=== PATIENT | female | born 2000 | race Caucasian/White ===

== ENCOUNTER 2021-07-30 21:16 | Emergency (ER) | payer OTHER ==
[~2021-07-30] VITALS: Ht 160 cm; Wt 134.7 kg
[2021-07-30 21:23] VITALS: BP 137/111
--- NOTE | 2021-07-30 21:33 | NUR ---
TO ED 10
--- NOTE | 2021-07-30 22:03 | NUR ---
ULTRASOUND AT BEDSIDE
--- NOTE | 2021-07-30 22:19 | NUR ---
LABS COLLECTED BY [facility] AND WALKED TO LAB
[2021-07-30 22:20] LABS: BASOPHILS # (AUTO) 0.1 K/uL (0.00-0.22); BASOPHILS % (AUTO) 0.5 % (0.0-2.0); EOSINOPHILS # (AUTO) 0.2 K/uL (0-0.4); EOSINOPHILS % (AUTO) 1.6 % (0.0-4.0); HEMATOCRIT 37.9 % (36-48); HEMOGLOBIN 12.3 g/dL (12.0-16.0); LYMPHOCYTES # (AUTO) 3.7 K/uL (2.5-16.5); MEAN CORPUSCULAR HEMOGLOBIN 25 pg (27-31); MEAN CORPUSCULAR HGB CONC 32 g/dL (33-37); MEAN CORPUSCULAR VOLUME 75.8 fL (80-94); MONOCYTES # (AUTO) 0.6 K/uL (0.8-1.0); MONOCYTES % (AUTO) 4.8 % (1.7-9.3); NEUTROPHILS # (AUTO) 8.2 K/uL (1.8-7.7); NEUTROPHILS % (AUTO) 64.1 % (42.2-75.2); PLATELET COUNT (AUTO) 355 K/uL (140-450); RED CELL DISTRIBUTION WIDTH 14.8 % (11.6-13.7); WHITE BLOOD COUNT (AUTO) 12.7 K/uL (4.8-10.8)
[2021-07-30] MEDS ORDERED: KETOROLAC 30 MG/ML VIAL IVP ONE (22:25)
[2021-07-30] MEDS ORDERED: MORPHINE SULFATE 4 MG/ML SYR IVP ONE (22:25)
[2021-07-30] MEDS ORDERED: ONDANSETRON 4 MG/2 ML VIAL IVP ONE (22:25)
[2021-07-30] MEDS ORDERED: NACL 0.9% 1,000 ML IV ONE (22:25)
[2021-07-30 22:42] LABS: ALBUMIN 3.5 g/dL (3.4-5.0); CARBON DIOXIDE 27.6 mmol/L (21-32); CREATININE 0.8 mg/dL (0.6-1.3); POTASSIUM 3.6 mmol/L (3.5-5.1); TOTAL BILIRUBIN 0.2 mg/dL (0.0-1.0)
--- NOTE | 2021-07-30 22:49 | NUR ---
21 Y/O FEMALE BIBS, C/O EPIGASTRIC PAIN X4HRS. PATIENT PRESENTS TO ED WITH NAUSEA AND PAIN. PT STATES PAIN IS ACROSS UPPER ABDOMEN AND RADIATES TO RIGHT BACK. HER CHEST HURTS IF SHE BREATHS TOO DEEP. DENIES V/D BUT DOES HAVE NUSEA; SKIN IS PINK/WARM/DRY; AAOX4 WITH EVEN AND STEADY GAIT; LUNGS CLEAR BL; HR EVEN AND REGULAR; PT DENIES ANY FEVER, SOB, OR COUGH AT THIS TIME; PATIENT STATES PAIN OF 0/10 AT THIS TIME; VSS; PATIENT POSITIONED FOR COMFORT; HOB ELEVATED; BEDRAILS UP X2; BED DOWN. ER MD MADE AWARE OF PT STATUS. DENIES PMH NKA DENIES MEDS
[2021-07-30] MEDS ORDERED: DICYCLOMINE HCL LIQUID 20 MG, ALUMINUM HYD/MAG/SIMETHICONE 30 ML, LIDOCAINE VISCOUS 2% ... PO ONE ×3 (23:45)
[2021-07-30] MEDS ORDERED: MAG-27 PO (23:51)
--- NOTE | 2021-07-30 23:53 | NUR ---
PULSOX DROPPED TO 82 W/ GOOD WAVE FROM, PT STATES SHE HAS SLEEP APNEA. PT PLACED ON 2 L/MIN NASAL CANULA
[2021-07-31 01:07] VITALS: BP 137/111
--- NOTE | 2021-07-31 01:08 | NUR ---
Patient discharged with v/s stable. Written and verbal after care instructions given and explained. Patient alert, oriented and verbalized understanding of instructions. Ambulatory with steady gait. All questions addressed prior to discharge. ID band removed. Patient advised to follow up with PMD. Rx of MYLANTA MAXIMUM STRENGTH LIQ given. Patient educated on indication of medication including possible reaction and side effects. Opportunity to ask questions provided and answered. VSS, A/OX4, AMBULATPORY, UNLABORED BREATHING, AND CALM DEMEANOR.
== END 2021-07-31 01:08 | disposition home or self-care (01) ==
LOC: MED 21:16
DX: R10.11 Right upper quadrant pain (principal); Z79.899 Other long term (current) drug therapy; Z98.890 Other specified postprocedural states
CPT/HCPCS: 36415; 76705; 80053; 83690; 85025; 96361; 96374; 96375; 99284; J1885; J2270; J2405; J7030; Q0092

== ENCOUNTER 2022-09-30 14:51 | Emergency (ER) | payer OTHER ==
[~2022-09-30] VITALS: Ht 157.5 cm; Wt 13.2 kg
[~2022-09-30 14:51] MED LIST: MAG-27 PO
[2022-09-30 15:16] VITALS: BP 114/64
[2022-09-30] MEDS ORDERED: NACL 0.9% 1,000 ML IV SCH (15:50)
[2022-09-30] MEDS ORDERED: KETOROLAC 30 MG/ML VIAL IVP ONE (15:50)
[2022-09-30 16:34] LABS: BASOPHILS % (AUTO) 0.4 % (0.0-2.0); EOSINOPHILS # (AUTO) 0.2 K/uL (0-0.4); EOSINOPHILS % (AUTO) 1.8 % (0.0-4.0); HEMATOCRIT 34.5 % (36-48); HEMOGLOBIN 11.2 g/dL (12.0-16.0); LYMPHOCYTES # (AUTO) 2.6 K/uL (2.5-16.5); LYMPHOCYTES % (AUTO) 23.3 % (20.5-51.1); MEAN CORPUSCULAR HEMOGLOBIN 23 pg (27-31); MEAN CORPUSCULAR HGB CONC 32 g/dL (33-37); MEAN CORPUSCULAR VOLUME 72.4 fL (80-94); MONOCYTES # (AUTO) 0.6 K/uL (0.8-1.0); MONOCYTES % (AUTO) 5.3 % (1.7-9.3); NEUTROPHILS # (AUTO) 7.6 K/uL (1.8-7.7); NEUTROPHILS % (AUTO) 69.2 % (42.2-75.2); PLATELET COUNT (AUTO) 362 K/uL (140-450); RED BLOOD CELL COUNT(AUTO) 4.77 MIL/uL (4.20-5.40)
--- NOTE | 2022-09-30 16:45 | NUR ---
Pt bibs for abd pain x 2 days. Pt was dx with a gallstone recently. Pt went to urgent care today and was then referred to ED. Pain is 8/10, radiates to back, burning, constant, tender to touch. Pt also has burning with urination. Pt was hard stick as she would only allow iv access attempts at specific sites. IV access obtained. Pt on monitor. UA/hcg obtained. stated he will cancel lab ua. Medicated as ordered, tolerating well.
[2022-09-30 16:48] LABS: ALBUMIN 3.7 g/dL (3.4-5.0); ANION GAP 12.9 (8-16); CREATININE 0.8 mg/dL (0.6-1.3); POTASSIUM 3.9 mmol/L (3.5-5.1); TOTAL BILIRUBIN 0.5 mg/dL (0.0-1.0)
--- NOTE | 2022-09-30 17:45 | NUR ---
US at bedside.
[2022-09-30] MEDS ORDERED: OMEP40EC24 PO (17:48)
[2022-09-30] MEDS ORDERED: ACET-8905 PO (17:48)
[2022-09-30] MEDS ORDERED: IBUP-2213 PO (17:48)
--- NOTE | 2022-09-30 20:50 | NUR ---
Patient discharged with v/s stable. Written and verbal after care instructions given and explained. Patient alert, oriented and verbalized understanding of instructions. Ambulatory with steady gait. All questions addressed prior to discharge. ID band removed. Patient advised to follow up with PMD. Rx of hydrocodone, ibuprofen, prilosec given. Opportunity to ask questions provided and answered. Dr. rebolledo orders reinforced
== END 2022-09-30 20:50 | disposition home or self-care (01) ==
LOC: MED 14:51
DX: K80.20 Calculus of gallbladder without cholecystitis without obstruction (principal); J45.909 Unspecified asthma, uncomplicated; G47.30 Sleep apnea, unspecified; Z98.890 Other specified postprocedural states; Z79.899 Other long term (current) drug therapy; Z79.1 Long term (current) use of non-steroidal anti-inflammatories (NSAID)
CPT/HCPCS: 36415; 76705; 80053; 81025; 83690; 85025; 96361; 96374; 99285; J1885; J7030; Q0092

== ENCOUNTER 2022-10-19 05:10 | Emergency (ER) | payer OTHER ==
[~2022-10-19] VITALS: Ht 157.5 cm; Wt 131.5 kg
[~2022-10-19 05:10] MED LIST changes: +ACET-8905 PO; +IBUP-2213 PO; +OMEP40EC24 PO
[2022-10-19 05:18] VITALS: BP 104/78; PULSE 102; RESP 17; TEMP 98.7; O2SAT 99
--- NOTE | 2022-10-19 05:18 | NUR ---
TO BED AMBULATORY
[2022-10-19] MEDS ORDERED: NACL 0.9% 1,000 ML IV ONE ×2 (05:35→10:05)
[2022-10-19] MEDS ORDERED: MORPHINE SULFATE 4 MG/ML SYR IVP ONE (05:35)
[2022-10-19 05:43] LABS: BASOPHILS # (AUTO) 0.1 K/uL (0.00-0.22); BASOPHILS % (AUTO) 0.7 % (0.0-2.0); EOSINOPHILS # (AUTO) 0.2 K/uL (0-0.4); EOSINOPHILS % (AUTO) 1.8 % (0.0-4.0); HEMATOCRIT 32.5 % (36-48); HEMOGLOBIN 10.9 g/dL (12.0-16.0); LYMPHOCYTES # (AUTO) 1.9 K/uL (2.5-16.5); LYMPHOCYTES % (AUTO) 19.9 % (20.5-51.1); MEAN CORPUSCULAR HEMOGLOBIN 24 pg (27-31); MEAN CORPUSCULAR HGB CONC 34 g/dL (33-37); MEAN CORPUSCULAR VOLUME 70.1 fL (80-94); MONOCYTES # (AUTO) 0.4 K/uL (0.8-1.0); MONOCYTES % (AUTO) 4.7 % (1.7-9.3); NEUTROPHILS # (AUTO) 6.8 K/uL (1.8-7.7); NEUTROPHILS % (AUTO) 72.9 % (42.2-75.2); PLATELET COUNT (AUTO) 334 K/uL (140-450); RED BLOOD CELL COUNT(AUTO) 4.63 MIL/uL (4.20-5.40); RED CELL DISTRIBUTION WIDTH 15.7 % (11.6-13.7); WHITE BLOOD COUNT (AUTO) 9.4 K/uL (4.8-10.8)
[2022-10-19] MEDS ORDERED: ONDANSETRON 4 MG/2 ML VIAL IVP ONE ×2 (05:45→10:20)
--- NOTE | 2022-10-19 05:45 | NUR ---
pt on bed 2 with cc of right flank pain with a scale of 10/10. restless, moaning and crying. A/Ox4. chest rise and fall symmetrical. on monitor
--- NOTE | 2022-10-19 05:57 | NUR ---
Dr. Rico examining patient.
[2022-10-19 06:06] LABS: ALBUMIN 3.6 g/dL (3.4-5.0); ANION GAP 15.9 (8-16); CARBON DIOXIDE 25.3 mmol/L (21-32); CREATININE 0.9 mg/dL (0.6-1.3); POTASSIUM 4.2 mmol/L (3.5-5.1); TOTAL BILIRUBIN 1.2 mg/dL (0.0-1.0)
--- NOTE | 2022-10-19 06:13 | NUR ---
ultrasound at bedside
--- NOTE | 2022-10-19 07:00 | NUR ---
pt still complaining 10/10 right flank pain. crying and moaning. Dr. Rico notified and verbalized that he will order pain meds
[2022-10-19] MEDS ORDERED: HYDROmorphone PFS 2 MG/ML SYR IVP ONE ×2 (07:10→12:20)
--- NOTE | 2022-10-19 07:24 | NUR ---
CONTINUATION OF CARE, PT IN CT
--- NOTE | 2022-10-19 07:24 | NUR ---
Pt report given to Julee WATSON. Transfer of care at this time.
--- NOTE | 2022-10-19 07:42 | NUR ---
22YO F C/O RUQ ABD PAIN X 1MTH WORSENING THIS AM, WOKE UP FROM SLEEP, 01/25, [place], AND N,V,C, [place]. PT DENIES FEVER, CHILLS, DIARRHEA. PT WAS SEEN IN ED 3WKS AGO , DX W/GALLSTONES. PT STATES SHE SCHEDULED APPOINTMENT WITH GENERAL SURGEON BUT DOESN'T SEE HIM TILL 10/04/22. NO ACURE DISTRESS NOTED, SAFETY MAINTAINED.
[2022-10-19 08:40] LABS: APPEARANCE,URINE CLEAR (CLEAR); BILIRUBIN,URINE NEGATIVE (NEGATIVE); BLOOD, URINE NEGATIVE (NEGATIVE); COLOR,URINE YELLOW (YELLOW); LEUKOCYTE ESTERASE ,URINE NEGATIVE (NEGATIVE); NITRITE, URINE NEGATIVE (NEGATIVE); UGLUCOSE NEGATIVE (NEGATIVE)
[2022-10-19 09:58] VITALS: O2SAT 98
[2022-10-19] MEDS ORDERED: MORPHINE SULFATE 10 MG/ML VIAL IVP ONE (10:05)
--- NOTE | 2022-10-19 10:10 | NUR ---
PT REQUESTING FOR PAIN MEDS, PAIN 01/25
[2022-10-19] MEDS ORDERED: ceFAZolin 1,000 MG VIAL ONE (10:42)
[2022-10-19] MEDS ORDERED: ZOLPIDEM 5 MG TAB PO PRN (13:00)
[2022-10-19] MEDS ORDERED: POTASSIUM CHLORIDE 10 MEQ TABER PO PRN (13:00)
[2022-10-19] MEDS ORDERED: ACETAMINOPHEN 325 MG TAB PO PRN (13:00)
[2022-10-19] MEDS ORDERED: KCL 20 MEQ IN 100 mL PREMIX 200 ML IV PRN (13:00)
[2022-10-19] MEDS ORDERED: NACL 0.9% 1,000 ML IV SCH (13:00)
[2022-10-19] MEDS ORDERED: LORazepam 1 MG TAB PO PRN (13:00)
[2022-10-19] MEDS ORDERED: MORPHINE SULFATE 4 MG/ML SYR IVP PRN (13:00)
[2022-10-19] MEDS ORDERED: ONDANSETRON 4 MG/2 ML VIAL IVP PRN (13:00)
[2022-10-19] MEDS ORDERED: HYDROcodone/APAP 5/325 MG 1 TAB TAB PO PRN (13:00)
[2022-10-19] MEDS ORDERED: MAG SULF 2000 MG/WATER PREMIX 50 ML IV PRN (13:00)
--- NOTE | 2022-10-19 14:01 | NUR ---
AWAITING FOR TRANSFER TO [facility]
--- NOTE | 2022-10-19 14:28 | NUR ---
CALLED [facility], SPOKE TO PAT ANALYTICS DEVELOPER NURSE TO GIVE REPORT AND ACCEPTANCE OF TRANSFER , ALL QUESTIONS ANSWERED, OKAY TO CALL TRANSPORTATION.
[2022-10-19 15:45] VITALS: BP 100/47; PULSE 99; RESP 15; TEMP 97.8; O2SAT 100
--- NOTE | 2022-10-19 15:45 | NUR ---
Patient to be transferred to [facility]. Is being transferred due to [facility]. Receiving facility has accepting physician and available space. ER physician has signed transfer form. Patient or responsible democrat has agreed to transfer and signed form. Patient belongings inventoried and will be sent with patient. Copy of nursing notes, lab reports, EKG, Physicians Orders and X-rays to be sent with patient. Report called to KYLAH EGG PRODUCER NURSE at receiving facility. [facility] ambulance service has been called for transfer. ETA is 45MIN.
--- NOTE | 2022-10-19 15:45 | NUR ---
PT TAKEN OUT OF ROOM TO AMBULANCE BY GISELLE
[2022-10-19] MEDS ORDERED: PIPERACILLIN/TAZOBACTAM 3.375 GM in DEXTROSE 5% 50 ML IV SCH ×4 (18:00)
[2022-10-20] MEDS ORDERED: DOCUSATE SODIUM 100 MG GELCAP PO SCH (09:00)
== END 2022-10-19 12:59 | disposition short-term general hospital (02) ==
LOC: MED 05:10
DX: K81.0 Acute cholecystitis (principal); J45.909 Unspecified asthma, uncomplicated; Z79.899 Other long term (current) drug therapy; Z79.1 Long term (current) use of non-steroidal anti-inflammatories (NSAID)
CPT/HCPCS: 36415; 74177; 76705; 80053; 81003; 81025; 83605; 83690; 84703; 85025; 87040; 96361; 96365; 96375; 96376; 99291; J0690; J1170; J2270; J2405; J7030; J7060; Q0092; Q9967; J2543